=== PATIENT | male | born 1960 | race Caucasian/White ===

== ENCOUNTER → 2017-03-11 | Outpatient (REF) ==
[~2017-03-11] MED LIST: HCTZ 25MG25 MG PO; LEVOTHYROXINE IJ; LISINOPRIL10 MG PO; METFORMIN500 MG PO
== END ==
LOC: WSOH 13:45
DX: Z02.4 Encounter for examination for driving license (principal)

== ENCOUNTER 2019-06-28 21:13 | Emergency (ER) | payer BC ==
[~2019-06-28] VITALS: Ht 180.3 cm; Wt 111.4 kg
[2019-06-28 21:18] VITALS: BP 139/68
[2019-06-28 21:45] LABS: COLLECTION METHOD CLEAN CATCH
[2019-06-28] MEDS ORDERED: DIABETA 5MG5 MG/TAB PO (21:45)
[2019-06-28 21:50] LABS: MUCOUS Present /lpf; PH 6 (5-8); SQUAMOUS EPITHELIAL None Seen /hpf; URINE APPEARANCE Clear; URINE BACTERIA None Seen /hpf; URINE BILIRUBIN Negative (NEGATIVE); URINE BLOOD Negative (NEGATIVE); URINE COLOR Yellow; URINE GLUCOSE 3+ (NEGATIVE); URINE KETONE Trace (NEGATIVE); URINE LEUKOCYTE ESTERASE Negative (NEGATIVE); URINE NITRATE Negative (NEGATIVE); URINE PROTEIN(semi-quant) Negative (NEGATIVE); URINE RBC 0-2 /hpf; URINE UROBILINOGEN Negative (NEGATIVE)
[2019-06-28 23:05] VITALS: PULSE 81; TEMP 98.2
== END 2019-06-28 23:10 | disposition home or self-care (01) ==
LOC: COL.ER 21:13
PROVIDERS: Emergency Medicine
DX: R33.9 Retention of urine, unspecified (principal); E11.9 Type 2 diabetes mellitus without complications; I10 Essential (primary) hypertension; Z79.84 Long term (current) use of oral hypoglycemic drugs